=== PATIENT | male | born 1970 | race Caucasian/White ===

== ENCOUNTER → 2016-10-25 | Outpatient (CLI) | payer MEDICAID ==
--- NOTE | ~2016-10-25 | CT14 ---
[facility] A Service of [facility] RADIOLOGY TEXT RESULTS PATIENT: SHIRA CASTILLO LOCATION: [facility] : 66 UNIT #: [id number] AGE: [address]: MNOICA ZARATE MD SEX: M ORDER DR: [id number] [facility] [address] [place], [place] [address] [id number] O MR#: [id number] Acc #: [id number] NAME: SHIRA CASTILLO : 1970 SEX: M STUDY DATE/TIME: 10/25/2016 14:20 UNIT: [facility] ROOM: STUDY DESCRIPTION: CT Angio Abdomen and Pelvis Attending Physician: Monica Zarate Referring Physician: Monica Zarate Primary Care Physician: Kieran Herrera M.D. MEDICAL IMAGING REPORT This report is preliminary unless electronic signature is present EXAM CT angiogram of the abdomen and pelvis. INDICATIONS Aortic dissection. This was diagnosed with CT angiogram from October 13, 2016. TECHNIQUE Axial CT images were obtained through the abdomen and diaphragm through the symphysis pubis following the administration of intravenous contrast material. Following this 3-D formatted images were obtained. This CT exam was performed with one or more of the following radiation dose reduction techniques: automatic exposure control, adjustment of mA and/or kV according to patient size, and iterative reconstruction. FINDINGS Images through the lung bases demonstrate some minimal bibasilar scarring versus atelectasis. 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 This patient has a dissection involving the descending thoracic aorta. It has a somewhat complex appearance within the distal descending thoracic aorta, but is probably not significantly changed when compared to the October 13 exam. I do think there is some increasing mass effect upon the true lumen on today's examination, in contrast to the prior examination where both the true and false lumens continue to the right renal artery. The right renal artery and today's exam is completely derived from the false lumen. This patient has 3 left renal arteries, all of which appear to be derived from the true lumen. The inferior mesenteric artery is also derived from the true lumen. The dissection continues into the distal left external iliac artery. 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 [facility] A Service of [facility] RADIOLOGY TEXT RESULTS PATIENT: SHIRA CASTILLO LOCATION: [facility] : 66 UNIT #: [id number] AGE: [address]: MONICA ZARATE MD SEX: M ORDER DR: up to 2.3 cm on the right 2.2 cm on the left. The patient's left internal iliac artery is derived from the true lumen. Common femorals are widely patent as visualized portions of the profunda femoris and superficial femoral arteries. Low-attenuation lesion seen within the medial hepatic segment may reflect a benign lesion such as a cyst. Liver, spleen, stomach, proximal small bowel, adrenal glands, pancreas gallbladder and kidneys all appear normal. No free fluid or adenopathy is seen within the abdomen. Patient has colonic diverticulosis without evidence of diverticulitis. Urinary bladder appears normal. Prostate gland contains dystrophic calcifications. Review of bony windows does not demonstrate any aggressive osseous abnormalities. IMPRESSION 1. The patient is again noted to have an aortic dissection, which extends into the distal left external iliac artery. I think there is some increased compression upon the true lumen at the level of the renal arteries when compared to the prior examination. On today's study the patient's right renal artery is derived entirely from the false lumen. Previously both the true and false lumens contributed to the right renal artery. However, the patient's 3 left renal arteries are all combine from the true lumen. At this point I think enhancement of the kidneys is symmetric. 2. 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 3. 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 4. Colonic diverticulosis. 5. Please see the body of the report for other additional findings. Dictated by... Fernanda Andrews M.D. THIS IS AN ELECTRONICALLY VERIFIED REPORT Fernanda Andrews M.D. at 10/27/2016 4:51 PM AFF/gz TD: 10/26/2016 14:07 JOB #: [id number] MEDICAL IMAGING REPORT Page 1 of 1 COPY
[2016-10-25 13:35] LABS: POC - GFR >60.0 mL/min (>60)
== END | disposition home or self-care (01) ==
LOC: CCAT 10-20 09:00
PROVIDERS: Surgery
DX: I71.01 Dissection of thoracic aorta (principal); I72.3 Aneurysm of iliac artery; K57.30 Diverticulosis of large intestine without perforation or abscess without bleeding; Q25.43 Congenital aneurysm of aorta
CPT/HCPCS: 74174; 82565; Q9967